=== PATIENT | female | born 1940 | race Caucasian/White ===

== ENCOUNTER 2018-09-21 05:50 | Day surgery (SDC) | payer OTHER ==
[2018-09-20 15:01] LABS: HEMATOCRIT 40.5 % (36.0-48.0); HEMOGLOBIN 13.5 g/dL (12-16); MCH 30.4 pg (26.0-34.0); MCHC 33.3 g/dL (31.0-37.0); MCV 91.2 fL (80.0-100.0); MEAN PLATELET VOLUME 9.3 fL (7.4-10.4); RBC 4.44 10x6/uL (4.00-5.40); RDW 13.3 % (11.5-14.5); WBC 7.8 10x3/uL (4.8-10.8)
[~2018-09-21] VITALS: Ht 160 cm; Wt 81.6 kg
--- NOTE | ~2018-09-21 | OP ---
PATIENT NAME: NINFA MAYA MEDICAL RECORD: [id number] :44 LOCATION:D.OPS ADMISSION DATE: SURGEON: BHAVANI DALY DPM DATE OF OPERATION: 09/21/2018 PREOPERATIVE DIAGNOSES: 1. HAV, left foot. 2. Tailor's bunion, left foot. 3. Neuroma, left third interspace. POSTOPERATIVE DIAGNOSES: 1. HAV, left foot. 2. Tailor's bunion, left foot. 3. Neuroma, left third interspace. PROCEDURES: 1. Larry bunionectomy, left foot. 2. Partial fifth met head resection, left foot. 3. Neurectomy, left third interspace. ANESTHESIA: General with local infiltrate utilizing lidocaine and Marcaine plain, 20 cc around the first ray, fifth ray, and the third interspace and dorsal foot. HEMOSTASIS: Left ankle tourniquet at 250 mmHg. PREOPERATIVE DETAILS: The patient was taken to the OR and placed on the operating table in a supine position followed by induction of general anesthesia and infiltration of local anesthetic. The left extremity was then prepped and draped in the usual aseptic technique followed by exsanguination and inflation of tourniquet. PROCEDURE #1: Larry bunionectomy, left foot: A 15-blade was used to create a 4-cm linear incision over the dorsal aspect of the left first ray extending to the base of proximal phalanx of the hallux. The incision was deepened down through subcutaneous tissue being sure to avoid all vital structures. A medial inverted L capsulotomy was performed. The medial capsular flap was reflected and the head of first metatarsal was delivered. A sagittal saw was used to resect the medial eminence. Attention was then directed to the first interspace where a lateral release was performed. Good clinical reduction of lateral contracture was verified. Attention was then redirected to the medial aspect of the head of the first metatarsal where a sagittal saw was used to create a V-osteotomy through and through. The capital fragment was translocated laterally and fixated with a 0.062 inch K-wire. K-wire was cut. The medial redundant shelf was resected. The wound was flushed. The capsule was then repaired with 2-0 Vicryl, the subcutaneous tissue with 4-0 Rapide, and the skin was closed with 4-0 Rapide in a subcuticular technique followed by Dermabond. PROCEDURE #2: Partial fifth metatarsal head resection, left foot: A 15-blade was used to create a 2 cm linear incision over the dorsal aspect of the fifth MPJ. The incision was deepened down through subcutaneous tissue. A linear capsulotomy was performed and the fifth metatarsal head was delivered. A sagittal saw was used to resect the lateral 3-4 mm of the metatarsal head. Wound was flushed. All rough areas were smoothed with a bone rasp. The wound was flushed once again. The capsule was repaired with 2-0 Vicryl, the OPERATIVE REPORT [id number] NINFA MAYA subcutaneous tissue with 4-0 Rapide and the skin was closed with 4-0 Rapide in a subcuticular technique followed by Dermabond. PROCEDURE #3: Neurectomy, left third interspace: A 15 blade was used to create an incision on the dorsal aspect of the third interspace extending to the base of the third and fourth digit. The incision measured approximately 3-4 cm. The incision was deepened down through subcutaneous tissue bluntly through the intermetatarsal ligament. The neuroma was visualized very easily in the wound. The nerve was then freed from the proper digital branches to the 3rd and 4th digit and then transected. The nerve was then freed proximal into the floor of the foot and was cut in that area and then sent to pathology for gross and micro identification. The wound was flushed. The wound was then infiltrated with lidocaine with epinephrine, approximately 10 cc. The subcutaneous tissue was then closed with 4-0 Rapide and the skin was closed with 4-0 Rapide in a subcuticular technique followed by Dermabond. Adaptic, 4 x 4 and Conform were used to dress the wounds followed by Coban. Tourniquet was deflated. POSTOPERATIVE DETAILS: The patient tolerated procedure well and left the OR with vital signs stable and vascular status at preoperative levels. The patient was transported to recovery per anesthesia in stable condition. TRANSINT:[id number] Voice Confirmation ID: [id number] DOCUMENT ID: [id number] BHAVANI DALY SABINO CC: [id number] DICTATION DATE: 09/21/18916 THERMOMETER TESTER: 09/21/[address] [facility] [address] [place] [address]
[~2018-09-21 05:50] MED LIST: ATIVAN0.5 MG PO; DEXILANT60 MG PO; FEXMID7.5 MG PO; GLUCOPHAGE1000 MG PO; LINZESS290 MCG PO; MIRAPEX0.75 MG PO; ONDANSETRON; SYNTHROID50 MCG PO
[2018-09-21 06:21] VITALS: BP 137/74; Ht 160 cm; Wt 81.6 kg
--- NOTE | 2018-09-21 11:28 | NUR ---
1125 IV DC'D WITH CATH INTACT.
== END 2018-09-21 11:42 | disposition home or self-care (01) ==
LOC: D.OPS 05:50 → D.PAN 07:30 → D.OPS 07:30 → D.PAN 08:00 → D.OPS 08:00
PROVIDERS: Anesthesiology; ATTEND Podiatrist
DX: M20.12 Hallux valgus (acquired), left foot (principal); M21.622 Bunionette of left foot; G57.82 Other specified mononeuropathies of left lower limb; Z01.812 Encounter for preprocedural laboratory examination

== ENCOUNTER 2018-11-09 05:00 | Day surgery (SDC) | payer OTHER ==
[2018-11-08 10:06] LABS: HEMATOCRIT 40.6 % (36.0-48.0); HEMOGLOBIN 13.7 g/dL (12-16); MCH 30.4 pg (26.0-34.0); MCHC 33.7 g/dL (31.0-37.0); MEAN PLATELET VOLUME 9.2 fL (7.4-10.4); RBC 4.51 10x6/uL (4.00-5.40); RDW 13.6 % (11.5-14.5); WBC 6.8 10x3/uL (4.8-10.8)
[2018-11-08 10:29] LABS: ANION GAP 13.3 mmol/L (8-16); CARBON DIOXIDE 25.7 mmol/L (21.0-32.0); CREATININE - SERUM 0.8 mg/dL (0.6-1.3)
[~2018-11-09] VITALS: Ht 160 cm; Wt 79.4 kg
--- NOTE | ~2018-11-09 | OP ---
PATIENT NAME: NINFA MAYA MEDICAL RECORD: [id number] :44 [facility]ATION:[facility] ADMISSION DATE: SURGEON: HBAVANI DALY DPM DATE OF OPERATION: 11/09/2018 PREOPERATIVE DIAGNOSIS: Painful retained hardware, left first metatarsal. POSTOPERATIVE DIAGNOSIS: Painful retained hardware, left first metatarsal. PROCEDURE: Removal of painful pin left first metatarsal. ANESTHESIA: Local with IV sedation. HEMOSTASIS: Left ankle tourniquet at 250 mmHg. PREOPERATIVE DETAILS: The patient was taken to the OR and placed on the operating table in a supine position, this was followed by induction of general anesthesia and infiltration of local anesthetic approximately 5 cc total in a V block around the surgical site. The left extremity was then prepped and draped in the usual aseptic technique followed by exsanguination and inflation of tourniquet. A C-arm was used to verify location. Small 1 cm linear incision was made overlying it. Dissection was carried down to the periosteum. The pin was located, freed and removed with a hemostat. C-arm was used to verify total removal. The wound was flushed. The skin was then closed with 4-0 Rapide in a subcuticular technique followed by Dermabond. Adaptic, 4 x 4 and Conform were used to dress the wound followed by Elias wrap. Tourniquet was deflated. POSTOPERATIVE DETAILS: The patient tolerated the procedure well and left the OR with vital signs stable and vascular status at preoperative levels. The patient was transported to recovery per anesthesia in stable condition. TRANSINT:[id number] Voice Confirmation ID: [id number] DOCUMENT ID: [id number] BHAVANI DALY DPM CC: [id number] DICTATION DATE: 11/09/18 0739 INDUSTRIAL SOCIOLOGIST: 11/09/18 [id number] [place] [address]
[2018-11-09 05:59] VITALS: BP 129/71; Ht 160 cm; Wt 79.4 kg
== END 2018-11-09 09:40 | disposition home or self-care (01) ==
LOC: D.OPS 05:00 → D.PAN 07:30 → D.OPS 07:30
PROVIDERS: Anesthesiology; ATTEND Podiatrist
DX: T84.84XA Pain due to internal orthopedic prosthetic devices, implants and grafts, initial encounter (principal)